=== PATIENT | female | born 1970 | race Caucasian/White ===

== ENCOUNTER 2017-02-04 15:55 | Emergency (ER) | payer MEDICAID ==
--- NOTE | 2017-02-04 16:12 | ED Physician Documentation ---
PD HPI URI - Stated complaint Stated Complaint: FATIGUE/FEVER - History obtained from History obtained from: Patient - History of Present Illness Timing - onset: How many months ago (1 1/2) Timing duration: Months (has been having fatigue, fevers, dyspnea, weakness, low BP since mid December. Was in [facility] Jan 04-Jan 22 for evaluation with multiple specialists. No firm Dx. Responds some to steroids. Was on 1 G sulmedrol at one point, with tapering down (currently 40 mg Prednisone daily). Feeling more fatigue and dyspnea the past few days. 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 Associated with fatigue and dyspnea.), Chills, Dry cough (mild). No: Sweats, Nasal congestion, Rhinorrhea, Sinus pain, Sore throat Contributing factors: Immunocompromised (had been on higher steroids in hospital and is on tapering doses.). No: Sick contact, Travel Improves by: No: Rest Worsened by: Activity (she has marked fatigue and increasing dyspnea the past several days, over baseline.) Similar symptoms before: No diagnosis (has been having fatigue, fevers, dyspnea for 1 1/2 months, with testing at [facility]. No clear diagnosis.) Recently seen: Clinic (few days ago at [facility] and had some labs done at that time, with Hgb 7.6, sodium 128, platelet count over a hundred.) Review of Systems Constitutional: reports: Fever Eyes: denies: Discharge, Irritation Ears: denies: Drainage/discharge Nose: denies: Rhinorrhea / runny nose, Congestion Throat: denies: Sore throat Cardiac: denies: Chest pain / pressure, Palpitations Respiratory: reports: Dyspnea, Cough (mild). denies: Hemoptysis, Wheezing GI: denies: Abdominal Pain, Nausea, Vomiting, Diarrhea, Bloody / black stool : denies: Dysuria, Frequency Skin: denies: Rash, Lesions Endocrine: denies: Weight loss, Easy bruising / bleeding Immunocompromised: reports: Immunocompromised. denies: Chemotherapy PD PAST MEDICAL HISTORY - Past Medical History Cardiovascular: None Respiratory: None Neuro: None Endocrine/Autoimmune: None Other Past Medical History: Recent fever unknown etiology, anemia, fatigue - Allergies Allergies/Adverse Reactions: Allergies Allergy/AdvReac Type Severity Reaction Status Date / Time codeine Allergy Unknown Verified 02/04/17 16:18 metronidazole [From Flagyl] Allergy Unknown Verified 02/04/17 16:19 PD ED PE NORMAL - Vitals Vital signs reviewed: Yes - General General: Alert and oriented X 3, Well developed/nourished, Other (seems dyspneic with sats 95%.) - HEENT HEENT: PERRL, Moist mucous membranes, Pharynx benign - Neck Neck: Supple, no meningeal sign, No adenopathy - Cardiac Cardiac: RRR, No murmur - Respiratory Respiratory: No respiratory distress (mild tachypnea), Clear bilaterally - Abdomen Abdomen: Soft, Non tender - Female Female : Deferred - Rectal Rectal: Deferred - Back Back: No CVA TTP - Derm Derm: Warm and dry. No: Normal color (pale) - Extremities Extremities: No deformity, No tenderness to palpate, Normal ROM s pain, No edema , Other (mild calf tenderness both legs) - Neuro Neuro: Alert and oriented X 3, No motor deficit, Normal speech Eye Opening: Spontaneous Motor: Obeys Commands Verbal: Oriented GCS Score: 15 - Psych Psych: Normal mood, Normal affect Results - Vitals Vitals: Vital Signs - 24 hr 02/04/17 02/04/17 02/04/17 16:05 16:45 17:25 Temperature 36.3 C L Heart Rate 105 H 100 92 Respiratory 18 22 22 Rate Blood Pressure 90/61 91/50 L 80/58 L O2 Saturation 96 100 96 02/04/17 02/04/17 02/04/17 17:43 19:04 19:07 Temperature 36.7 C 36.4 C L 36.5 C Heart Rate 90 88 93 Respiratory 22 22 22 Rate Blood Pressure 84/57 L 82/48 L 93/61 O2 Saturation 95 02/04/17 02/04/17 02/04/17 19:55 20:22 20:32 Temperature 36.1 C L 36.6 C 36.6 C Heart Rate 90 94 91 Respiratory 24 25 H 22 Rate Blood Pressure 85/53 L 89/61 L 88/63 L O2 Saturation 94 02/04/17 02/04/17 02/04/17 20:55 21:49 22:29 Temperature 36.3 C L 36.8 C 97.2 C H Heart Rate 89 88 90 Respiratory 24 24 28 H Rate Blood Pressure 95/65 91/58 L 99/62 O2 Saturation 96 02/04/17 02/04/17 22:34 23:01 Temperature Heart Rate 89 91 Respiratory 23 24 Rate Blood Pressure 99/62 102/58 L O2 Saturation 96 97 Oxygen O2 Source Nasal cannula - Labs Labs: Laboratory Tests 02/04/17 02/04/17 02/04/17 16:22 16:22 16:22 WBC 9.1 RBC 2.76 L Hgb 7.2 L Hct 22.1 L MCV 80.1 L MCH 25.9 L MCHC 32.3 RDW 18.0 H Plt Count 66 L MPV 8.4 Neut # Not Reportable Lymph # Not Reportable [place] # Not Reportable Eos # Not Reportable Baso # Not Reportable Absolute Nucleated RBC Not Reportable Total Counted 100 Band Neuts % (Manual) 2 Abnorm Lymph % (Manual) 0 Metamyelocytes % 1 H Nucleated RBC % Not Reportable Neutrophils # (Manual) 7.5 H Lymphocytes # (Manual) 1.5 Monocytes # (Manual) 0.1 Eosinophils # (Manual) 0.0 Basophils # (Manual) 0.0 Nucleated RBCs 4 Differential Comment MANUAL DIFFERENTIAL Manual Slide Review Indicated Platelet Estimate DECREASED (<130,000) Platelet Morphology NORMAL APPEARANCE RBC Morph Micro Appear 1+ HYPOCHROMASIA ESR > 140 H PT INR APTT Fibrinogen D-Dimer Sodium 123 L Potassium 4.5 Chloride 91 L Carbon Dioxide 17 L Anion Gap 15.0 H BUN 20 Creatinine 1.3 H Estimated GFR (MDRD) 44 L Glucose 82 Calcium 8.5 Magnesium 1.9 Total Bilirubin 1.5 H AST 58 H ALT 32 Alkaline Phosphatase 197 H Total Protein 5.9 L Albumin 1.6 L Globulin 4.3 H Albumin/Globulin Ratio 0.4 L Lipase 20 L Urine Color Urine Clarity Urine pH Ur Specific Mode Urine Protein Urine Glucose (UA) Urine Ketones Urine Occult Blood Urine Nitrite Urine Bilirubin Urine Urobilinogen Ur Leukocyte Esterase Ur Microscopic Review Urine Culture Comments Blood Type Blood Type Recheck Antibody Screen Crossmatch IS Only 02/04/17 02/04/17 02/04/17 16:22 16:22 17:42 WBC RBC Hgb Hct MCV MCH MCHC RDW Plt Count MPV Neut # Lymph # [place] # Eos # Baso # Absolute Nucleated RBC Total Counted Band Neuts % (Manual) Abnorm Lymph % (Manual) Metamyelocytes % Nucleated RBC % Neutrophils # (Manual) Lymphocytes # (Manual) Monocytes # (Manual) Eosinophils # (Manual) Basophils # (Manual) Nucleated RBCs Differential Comment Manual Slide Review Platelet Estimate Platelet Morphology RBC Morph Micro Appear ESR PT INR APTT Fibrinogen D-Dimer < 200.0 L Sodium Potassium Chloride Carbon Dioxide Anion Gap BUN Creatinine Estimated GFR (MDRD) Glucose Calcium Magnesium Total Bilirubin AST ALT Alkaline Phosphatase Total Protein Albumin Globulin Albumin/Globulin Ratio Lipase Urine Color Urine Clarity Urine pH Ur Specific Mode Urine Protein Urine Glucose (UA) Urine Ketones Urine Occult Blood Urine Nitrite Urine Bilirubin Urine Urobilinogen Ur Leukocyte Esterase Ur Microscopic Review Urine Culture Comments Blood Type A POSITIVE Blood Type Recheck A POSITIVE Antibody Screen NEGATIVE Crossmatch IS Only See Detail 02/04/17 02/04/17 02/04/17 17:42 18:35 21:05 WBC 6.9 RBC 2.94 L Hgb 7.5 L Hct 23.2 L MCV 78.9 L MCH 25.4 L MCHC 32.2 RDW 18.1 H Plt Count 37 L 40 L MPV 8.0 Neut # Not Reportable Lymph # Not Reportable [place] # Not Reportable Eos # Not Reportable Baso # Not Reportable Absolute Nucleated RBC Not Reportable Total Counted 100 Band Neuts % (Manual) 2 Abnorm Lymph % (Manual) 0 Metamyelocytes % 3 H Nucleated RBC % Not Reportable Neutrophils # (Manual) 5.6 Lymphocytes # (Manual) 0.8 L Monocytes # (Manual) 0.3 Eosinophils # (Manual) 0.0 Basophils # (Manual) 0.0 Nucleated RBCs 1 Differential Comment MANUAL DIFFERENTIAL Manual Slide Review Platelet Estimate DECREASED (<130,000) Platelet Morphology NORMAL APPEARANCE RBC Morph Micro Appear 1+ STOMATOCYTES ESR PT INR APTT Fibrinogen D-Dimer Sodium Potassium Chloride Carbon Dioxide Anion Gap BUN Creatinine Estimated GFR (MDRD) Glucose Calcium Magnesium Total Bilirubin AST ALT Alkaline Phosphatase Total Protein Albumin Globulin Albumin/Globulin Ratio Lipase Urine Color YELLOW Urine Clarity CLEAR Urine pH 6.0 Ur Specific Mode <=1.005 Urine Protein NEGATIVE Urine Glucose (UA) NEGATIVE Urine Ketones NEGATIVE Urine Occult Blood NEGATIVE Urine Nitrite NEGATIVE Urine Bilirubin NEGATIVE Urine Urobilinogen 1 (NORMAL) Ur Leukocyte Esterase NEGATIVE Ur Microscopic Review NOT INDICATED Urine Culture Comments NOT INDICATED Blood Type Blood Type Recheck Antibody Screen Crossmatch IS Only 02/04/17 21:05 WBC RBC Hgb Hct MCV MCH MCHC RDW Plt Count MPV Neut # Lymph # [place] # Eos # Baso # Absolute Nucleated RBC Total Counted Band Neuts % (Manual) Abnorm Lymph % (Manual) Metamyelocytes % Nucleated RBC % Neutrophils # (Manual) Lymphocytes # (Manual) Monocytes # (Manual) Eosinophils # (Manual) Basophils # (Manual) Nucleated RBCs Differential Comment Manual Slide Review Platelet Estimate Platelet Morphology RBC Morph Micro Appear ESR PT 15.8 H INR 1.4 H APTT 22.7 L Fibrinogen 638 H D-Dimer Sodium Potassium Chloride Carbon Dioxide Anion Gap BUN Creatinine Estimated GFR (MDRD) Glucose Calcium Magnesium Total Bilirubin AST ALT Alkaline Phosphatase Total Protein Albumin Globulin Albumin/Globulin Ratio Lipase Urine Color Urine Clarity Urine pH Ur Specific Mode Urine Protein Urine Glucose (UA) Urine Ketones Urine Occult Blood Urine Nitrite Urine Bilirubin Urine Urobilinogen Ur Leukocyte Esterase Ur Microscopic Review Urine Culture Comments Blood Type Blood Type Recheck Antibody Screen Crossmatch IS Only - Rads (name of study) chest Radiology: Prelim report reviewed (no infiltrates), EMP read contemporaneously duplex lower legs Radiology: Prelim report reviewed (no DVT) PD MEDICAL DECISION MAKING - ED course Complexity details: reviewed results, re-evaluated patient (Getting transfusion 2 units RBCs without problems, and given steroids and benadryl to reduce chance of reaction. She has improved color and somewhat less dyspnea. After 2nd unit of blood, and resting, she did develop lower sats to 89%, which improved with NC 2 lpm. She has some faint crackles in left base. Repeat chest xray showing some mild vascular congestion. Gave Lasix 20 mg IV. I talked again with Oil Rigger, who felt there was enough abnormal to warrant admission and refers to Hospitalist service. ), considered differential (she has symptomatic anemia, with dyspnea and not other good cause for it. So will give transfusion to improve symptoms. Workup also showing low platelet count and sodium, and these are new findings compared to few days ago. Talked with Hematology at [facility], who asked for repeated labs in blue top and to be sure of new findings. May need to transfer to [facility] for fruther testing. Here she did get transfused 2 units RBCs. ), d/w patient, d/w garden consultant (Hematology at [facility]) , other (talked with [facility] Hospitalist, who accepts transfer, Dr. Rosado. charge coordinator said their beds are tight and will call us back shortly with bed assignment, is on list of admissions.) Departure - Departure Disposition: 02 Transfer Acute Care Hosp Clinical Impression: Symptomatic anemia, Thrombocytopenia, Hyponatremia, Periodic fever Dyspnea Qualifiers: Dyspnea type: shortness of breath Qualified Code(s): R06.02 - Shortness of breath Condition: Stable Record reviewed to determine appropriate education?: Yes
[2017-02-04] MEDS ORDERED: SODIUM CHLORIDE 0.9% 1,000 ML IV ONE (16:42)
[2017-02-04 16:51] LABS: BASOPHILS % (AUTO) 2.9 %; EOSINOPHILS % (AUTO) 0.2 %; HCT - HEMATOCRIT 22.1 % (37.0-47.0); HGB - HEMOGLOBIN 7.2 g/dL (12.0-16.0); LYMPHOCYTES % (AUTO) 18.3 %; MEAN CORPUSCULAR HEMOGLOBIN 25.9 pg (27.0-31.0); MEAN CORPUSCULAR HGB CONC 32.3 g/dL (32.0-36.0); MEAN CORPUSCULAR VOLUME 80.1 fL (81.0-99.0); MEAN PLATELET VOLUME 8.4 fL (7.9-10.8); NEUTROPHILS % (AUTO) 74.6 %; RED BLOOD COUNT 2.76 10^6/uL (4.20-5.40); UNCORRECTED WHITE BLOOD COUNT 9.1 x10^3/uL; WHITE BLOOD COUNT 9.1 x10^3/uL (4.8-10.8)
[2017-02-04 17:00] LABS: ALBUMIN/GLOBULIN RATIO 0.4 (1.0-2.2); BILIRUBIN,TOTAL 1.5 mg/dL (0.2-1.0); CALCIUM 8.5 mg/dL (8.5-10.3); CREATININE 1.3 mg/dL (0.4-1.0); MAGNESIUM 1.9 mg/dL (1.7-2.8); POTASSIUM 4.5 mmol/L (3.5-5.0); TOTAL PROTEIN 5.9 g/dL (6.7-8.2)
[2017-02-04 17:16] LABS: BAND NEUTROPHILS % (MANUAL) 2 %; LYMPHOCYTES % (MANUAL) 16 %; NEUTROPHILS % (MANUAL) 80 %; TOTAL CELLS COUNTED 100
[2017-02-04 17:17] LABS: NP AUTO DIFFERENTIAL? YES; NP MAN DIFFERENTIAL? NO; PLATELET ESTIMATE, MANUAL DECREASED (<130,000) (NORMAL); PLATELET MORPHOLOGY NORMAL APPEARANCE (NORMAL)
--- NOTE | 2017-02-04 17:36 | XRAY Preliminary Report ---
Exam: XR CHEST 2 VIEW PA/LAT IMPRESSION: 1. Decreasing bilateral lower lobe platelike densities likely represent areas of atelectasis, scarrin g or resolving pneumonia. 2. Decreasing bilateral effusions. No pneumothorax. [facility] SITE ID: [id number]
--- NOTE | 2017-02-04 18:18 | XRAY Report ---
EXAM: CHEST RADIOGRAPHY EXAM DATE: 02/04/2017 05:02 PM. CLINICAL HISTORY: Dyspnea and fatigue. COMPARISON: 01/20/2017. TECHNIQUE: 2 views. FINDINGS: Lungs/Pleura: Bilateral lower lobe atelectasis or areas of scarring. Previous effusions have decrease d in size. No new consolidation, new effusions or pneumothorax. Mild left hilar bronchial wall thicke laura. Mediastinum: Stable cardiac silhouette. Other: None. IMPRESSION: 1. Decreasing bilateral lower lobe platelike densities likely represent areas of atelectasis, scarrin g or resolving pneumonia. 2. Decreasing bilateral effusions. No pneumothorax. [facility] Referring Provider Line: [phone] SITE ID: [id number]
[2017-02-04 18:43] LABS: BILIRUBIN,URINE NEGATIVE (NEGATIVE)
[2017-02-04 18:44] LABS: UA CHARGE (STRIP ONLY) YES; UR CULTURE IF IND NOT INDICATED
--- NOTE | 2017-02-04 19:18 | Ultrasound Preliminary Report ---
Exam: US DUPLEX EXT VEINS BILATERAL IMPRESSION: No evidence for deep venous thrombosis bilaterally. [facility] SITE ID: [id number]
--- NOTE | 2017-02-04 19:21 | Ultrasound Report ---
EXAM: BILATERAL LOWER EXTREMITY VENOUS ULTRASOUND EXAM DATE: 02/04/2017 07:09 PM. CLINICAL HISTORY: Dyspnea and fatigue. Calves tender. COMPARISON: None. TECHNIQUE: Real-time sonographic vascular imaging was performed by the charging machine operator through the lower extremities utilizing both color-flow and Doppler spectral analysis. Multiple entry level account representative static i mages were saved for review. FINDINGS: Right: Common Femoral Vein (CFV): Normal. CFV-GSV Junction: Normal. Profunda Femoral Vein (PFV): Normal. Femoral Vein (FV) Prox: Normal. Femoral Vein (FV) Mid: Normal. Femoral Vein (FV) Dist: Normal. Popliteal Vein: Normal. Posterior Tibial Veins: Normal. Peroneal Veins: Normal. Left: Common Femoral Vein (CFV): Normal. CFV-GSV Junction: Normal. Profunda Femoral Vein (PFV): Normal. Femoral Vein (FV) Prox: Normal. Femoral Vein (FV) Mid: Normal. Femoral Vein (FV) Dist: Normal. Popliteal Vein: Normal. Posterior Tibial Veins: Normal. Peroneal Veins: Normal. Other: None. IMPRESSION: No evidence for deep venous thrombosis bilaterally. [facility] Referring Provider Line: [phone] SITE ID: [id number]
[2017-02-04] MEDS ORDERED: DEXAMETHASONE 10 MG/ML VIAL IVP STA (20:41)
[2017-02-04] MEDS ORDERED: diphenhydrAMINE INJ 50 MG/ML VIAL IVP STA (20:42)
[2017-02-04] MEDS ORDERED: diphenhydrAMINE INJ 50 MG/ML VIAL ONE (21:00)
[2017-02-04] MEDS ORDERED: DEXAMETHASONE 10 MG/ML VIAL ONE (21:01)
[2017-02-04 21:24] LABS: BASOPHILS % (AUTO) 0.9 %; EOSINOPHILS % (AUTO) 0.1 %; HCT - HEMATOCRIT 23.2 % (37.0-47.0); HGB - HEMOGLOBIN 7.5 g/dL (12.0-16.0); LYMPHOCYTES % (AUTO) 23.8 %; MEAN CORPUSCULAR HEMOGLOBIN 25.4 pg (27.0-31.0); MEAN CORPUSCULAR HGB CONC 32.2 g/dL (32.0-36.0); MEAN CORPUSCULAR VOLUME 78.9 fL (81.0-99.0); MONOCYTES % (AUTO) 2.8 %; NEUTROPHILS % (AUTO) 72.4 %; RED BLOOD COUNT 2.94 10^6/uL (4.20-5.40); RED CELL DISTRIBUTION WIDTH 18.1 % (12.0-15.0); UNCORRECTED WHITE BLOOD COUNT 6.9 x10^3/uL; WHITE BLOOD COUNT 6.9 x10^3/uL (4.8-10.8)
[2017-02-04 21:35] LABS: BAND NEUTROPHILS % (MANUAL) 2 %; LYMPHOCYTES % (MANUAL) 12 %; NEUTROPHILS % (MANUAL) 79 %; TOTAL CELLS COUNTED 100
[2017-02-04 21:38] LABS: PLATELET ESTIMATE, MANUAL DECREASED (<130,000) (NORMAL); PLATELET MORPHOLOGY NORMAL APPEARANCE (NORMAL)
[2017-02-04 21:39] LABS: NP AUTO DIFFERENTIAL? YES; NP MAN DIFFERENTIAL? NO
[2017-02-04 21:50] LABS: INR 1.4 (0.8-1.2); PT - PROTHROMBIN TIME 15.8 secs (9.9-12.6)
[2017-02-04 22:11] LABS: PARTIAL THROMBOPLASTIN TIME 22.7 secs (24.9-33.3)
[2017-02-04] MEDS ORDERED: FUROSEMIDE 20 MG/2 ML VIAL IVP STA (22:52)
[2017-02-04] MEDS ORDERED: FUROSEMIDE 20 MG/2 ML VIAL IVP ONE (23:02)
--- NOTE | 2017-02-04 23:18 | XRAY Preliminary Report ---
Exam: XR CHEST 1 VIEW IMPRESSION: 1. No pneumothorax or effusions. 2. Persistent bilateral lower lobe opacities. [facility] SITE ID: [id number]
--- NOTE | 2017-02-05 00:47 | XRAY Report ---
EXAM: CHEST RADIOGRAPHY EXAM DATE: 02/04/2017 10:47 PM. CLINICAL HISTORY: Dyspnea, lower sats after transfusion. COMPARISON: 02/04/2017. TECHNIQUE: 1 view. FINDINGS: Lungs/Pleura: No large effusions or pneumothorax. Patchy bilateral lower lobe opacities are similar. Mediastinum: Stable cardiac silhouette. Other: None. IMPRESSION: 1. No pneumothorax or effusions. 2. Persistent bilateral lower lobe opacities. [facility] Referring Provider Line: [phone] SITE ID: [id number]
[2017-02-05 00:57] VITALS: BP 98/64
== END 2017-02-05 01:44 | disposition short-term general hospital (02) ==
LOC: ED 15:55
DX: D64.89 Other specified anemias (principal); D69.6 Thrombocytopenia, unspecified; E87.1 Hypo-osmolality and hyponatremia; R50.9 Fever, unspecified; R06.02 Shortness of breath
CPT/HCPCS: 36415; 36430; 71010; 71020; 80053; 81003; 83690; 83735; 85025; 85049; 85379; 85384; 85610; 85651; 85730; 86850; 86900; 86901; 86920; 93970; 96361; 96374; 96375; 99284; 99285; P9016; 81001; 87086

== ENCOUNTER 2017-02-05 01:39 | Outpatient (CLI) | payer MEDICAID | END 2017-02-05 01:40 | disposition short-term general hospital (02) | LOC: EMS 01:39 | PROVIDERS: ATTEND Surgery | DX: E87.1 Hypo-osmolality and hyponatremia (principal); D69.6 Thrombocytopenia, unspecified; R06.00 Dyspnea, unspecified | CPT/HCPCS: A0425; A0426 ==